=== PATIENT | male | born 1970 | race Caucasian/White ===

== ENCOUNTER → 2016-09-11 | Outpatient (CLI) | payer MEDICAID, OTHER ==
[~2016-09-11] MED LIST: ALB2.5NEB INH; ALBU17IN INH; DRIS50002 PO; DULE100A INH; FERR325T3 PO; GABA-282 PO; GABA-283 PO; HYDR25T PO; IBUP800T23 PO; INCR1INH INH; LEVA500T PO; LEVO750T33 PO; LIPI10TA PO; LISI40TAB PO; NICO21PAT TD; PRED10TA PO; PRED20TA PO; SERT-138 PO; SERT50TA PO; TRAZO50TA PO; TYLE325T5 PO; VITA1CAP25 PO
[2016-09-11 14:54] LABS: ANION GAP 6 MEQ/L (8-16); BLOOD UREA NITROGEN 11 MG/DL (7-18); CALCIUM LEVEL 9.3 MG/DL (8.5-10.1); CARBON DIOXIDE LEVEL 30 MEQ/L (21-32); CHLORIDE LEVEL 105 MEQ/L (98-107); GLOMERULAR FILTRATION RATE > 60.0 (>60); GLUCOSE, FASTING 109 MG/DL (70-105); SODIUM LEVEL 141 MEQ/L (136-145)
== END ==
LOC: M LAB 13:20
PROVIDERS: ATTEND Family Medicine
DX: R73.03 Prediabetes (principal); Z79.1 Long term (current) use of non-steroidal anti-inflammatories (NSAID)

== ENCOUNTER → 2016-09-15 | Outpatient (CLI) | payer OTHER ==
--- NOTE | 2016-09-15 16:00 | REP ---
MRI thoracic spine without contrast: History: Urinary incontinence and gait instability. Comparison radiographs are from January 25, 2016. Technique: Sagittal and axial T1 and T2-weighted scans are acquired in the usual fashion with and without fat saturation. Sequences include spin echo, turbo spin-echo, and STIR imaging sequences. MRI findings: Thoracic vertebral body heights are preserved and alignment is normal. Cortical and medullary bone signal intensity is normal. There is disc space narrowing and decreased disc space signal intensity on T2-weighted sequences at the T6-7 and T8-9 intervertebral disc levels consistent with some degree of degenerative disc disease at these two levels. At T6-7, there is a right posterior disc protrusion, which effaces the ventral subarachnoid space and which flattens the right ventral lateral margin of the cord. No central canal stenosis is seen. At T8-9, there is mild diffuse bulging of the posterior cord margin without focal herniation. No cord compression is seen. The thoracic cord is normal in caliber and course. However, the central canal is slightly dilated and more conspicuous than usual on T2-weighted images, particularly the STIR sequence. 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 No extra spinal abnormality is seen. Exam is otherwise unremarkable. Impression: 1. Mild degenerative disc disease is T6-7 and T8-9. 2. Small right posterior disc protrusion at T6-7 flattening the right ventral lateral margin of the cord. 3. Mild prominence of the central canal in the thoracic spinal cord consistent with minimal hydromyelia. Signed by Sav Hair MD 09/15/2016 06:00 P
== END ==
LOC: M RAD 13:40
PROVIDERS: ATTEND Family Medicine
DX: R32 Unspecified urinary incontinence (principal); R26.81 Unsteadiness on feet; M51.34 Other intervertebral disc degeneration, thoracic region; M51.04 Intervertebral disc disorders with myelopathy, thoracic region; R90.89 Other abnormal findings on diagnostic imaging of central nervous system

== ENCOUNTER → 2017-01-11 | Outpatient (CLI) | payer MEDICAID ==
[~2017-01-11] MED LIST changes: +HYDR-3363 PO; -HYDR25T PO; +IBUP1TAB7 PO; -IBUP800T23 PO; +LEVA1TAB2 PO; -LEVA500T PO; +LEVO750T13 PO; -LEVO750T33 PO
== END ==
LOC: M OUTALCOH 13:24
PROVIDERS: ATTEND Psychiatry & Neurology Psychiatry
DX: Z13.9 Encounter for screening, unspecified (principal); F10.20 Alcohol dependence, uncomplicated

== ENCOUNTER → 2017-02-01 | Outpatient (RCR) | payer MEDICAID | LOC: M OUTALCOH 01-19 16:51 | PROVIDERS: ATTEND Psychiatry & Neurology Psychiatry | DX: F10.20 Alcohol dependence, uncomplicated (principal); F17.200 Nicotine dependence, unspecified, uncomplicated ==

== ENCOUNTER → 2017-02-23 | Outpatient (CLI) | payer MEDICAID ==
[2017-02-23 15:23] LABS: ANION GAP 6 MEQ/L (8-16); BLOOD UREA NITROGEN 11 MG/DL (7-18); CALCIUM LEVEL 9.6 MG/DL (8.5-10.1); CARBON DIOXIDE LEVEL 29 MEQ/L (21-32); CHLORIDE LEVEL 108 MEQ/L (98-107); CREATININE FOR GFR 0.93 MG/DL (0.70-1.30); GLOMERULAR FILTRATION RATE > 60.0 (>60); GLUCOSE, FASTING 97 MG/DL (70-105); POTASSIUM SERUM 4.8 MEQ/L (3.5-5.1); SODIUM LEVEL 143 MEQ/L (136-145)
== END ==
LOC: M LAB 14:03
PROVIDERS: ATTEND Family Medicine
DX: R73.03 Prediabetes (principal)

== ENCOUNTER 2017-02-28 15:00 | Outpatient (RCR) | payer MEDICAID | END 2017-03-03 | LOC: M OUTALCOH 15:00 | PROVIDERS: ATTEND Psychiatry & Neurology Psychiatry | DX: F10.20 Alcohol dependence, uncomplicated (principal); F17.200 Nicotine dependence, unspecified, uncomplicated ==

== ENCOUNTER 2017-04-30 16:00 | Outpatient (RCR) | payer MEDICAID | END 2017-05-03 | LOC: M OUTALCOH 16:00 | PROVIDERS: ATTEND Psychiatry & Neurology Psychiatry | DX: F10.20 Alcohol dependence, uncomplicated (principal); F17.200 Nicotine dependence, unspecified, uncomplicated ==

== ENCOUNTER 2017-05-04 10:51 | Outpatient (RCR) | payer MEDICAID | END 2017-06-03 | LOC: M OUTALCOH 05-07 16:00 | DX: F10.20 Alcohol dependence, uncomplicated (principal); F17.200 Nicotine dependence, unspecified, uncomplicated ==

== ENCOUNTER 2017-06-07 14:00 | Outpatient (RCR) | payer MEDICAID | END 2017-07-04 | LOC: M OUTALCOH 06-11 16:00 | DX: F10.20 Alcohol dependence, uncomplicated (principal); F17.200 Nicotine dependence, unspecified, uncomplicated ==

== ENCOUNTER 2017-07-06 16:55 | Outpatient (RCR) | payer MEDICAID | END 2017-08-01 | LOC: M OUTALCOH 16:55 | DX: F10.20 Alcohol dependence, uncomplicated (principal); F17.200 Nicotine dependence, unspecified, uncomplicated ==

== ENCOUNTER 2017-07-16 09:08 | Outpatient (RCR) | payer MEDICAID | END 2017-08-01 | LOC: M OUTALCOH 07-20 12:00 | DX: F10.20 Alcohol dependence, uncomplicated (principal); F17.200 Nicotine dependence, unspecified, uncomplicated ==

== ENCOUNTER 2017-08-03 13:06 | Outpatient (RCR) | payer MEDICAID | END 2017-09-01 | LOC: M OUTALCOH 13:06 | DX: F10.20 Alcohol dependence, uncomplicated (principal); F17.200 Nicotine dependence, unspecified, uncomplicated ==

== ENCOUNTER → 2017-08-13 | Outpatient (REF) | payer MEDICARE, OTHER ==
[2017-08-13 14:24] LABS: ANION GAP 7 MEQ/L (8-16); BLOOD UREA NITROGEN 7 MG/DL (7-18); CALCIUM LEVEL 9.3 MG/DL (8.5-10.1); CARBON DIOXIDE LEVEL 29 MEQ/L (21-32); CHLORIDE LEVEL 105 MEQ/L (98-107); CREATININE FOR GFR 1.03 MG/DL (0.70-1.30); GLOMERULAR FILTRATION RATE > 60.0 (>60); GLUCOSE, FASTING 134 MG/DL (70-100); PSA SCREENING 1.43 NG/ML (< 4.0); SODIUM LEVEL 141 MEQ/L (136-145)
[2017-08-13 15:29] LABS: ESTIMATED AVERAGE GLUCOSE 134 MG/DL (60-110); HEMOGLOBIN A1c 6.3 %
[2017-08-14 14:17] LABS: TESTOSTERONE FREE (DIRECT) 13.9 pg/mL (6.8-21.5)
== END ==
LOC: M SFHCPLAZ 11:15
DX: R73.03 Prediabetes (principal); E29.1 Testicular hypofunction; R32 Unspecified urinary incontinence
CPT/HCPCS: 84403

== ENCOUNTER → 2017-08-24 | Outpatient (CLI) | payer MEDICARE, OTHER, MEDICAID ==
[2017-08-24 09:30] LABS: APPEARANCE, URINE CLEAR (CLEAR); BACTERIA, URINE AUTO NEGATIVE (NEGATIVE); BILIRUBIN, URINE AUTO NEGATIVE (NEGATIVE); BLOOD, URINE BLOOD NEGATIVE (NEGATIVE); COLOR, URINE STRAW (YELLOW); GLUCOSE, URINE (UA) AUTO NEGATIVE (NEGATIVE); KETONE, URINE AUTO NEGATIVE (NEGATIVE); LEUKOCYTE ESTERASE, URINE AUTO NEGATIVE (NEGATIVE); NITRITE, URINE AUTO NEGATIVE (NEGATIVE); PROTEIN, URINE AUTO NEGATIVE (NEGATIVE); RBC, URINE AUTO 0 /HPF (0-3); SPECIFIC GRAVITY URINE AUTO 1.003 (1.002-1.035); SQUAMOUS EPITHELIAL CELL UR AU 0 /HPF (0-6); UROBILINOGEN, URINE AUTO 0.2 mg/dL (0.0-2.0); WBC, URINE AUTO 0 /HPF (0-3)
== END ==
LOC: M LAB 08:46
DX: R32 Unspecified urinary incontinence (principal)
CPT/HCPCS: 76857

== ENCOUNTER → 2020-06-01 | Outpatient (REF) | payer MEDICARE, MEDICAID ==
[~2020-06-01] MED LIST changes: -DRIS50002 PO; +DRIS50003 PO; -GABA-282 PO; -GABA-283 PO; +GABA-843 PO; +GABA-845 PO; +LISI40TA52 PO; -LISI40TAB PO; +NICO21DI3 TD; -NICO21PAT TD; +PRED-351 PO; -PRED10TA PO; +SERT-141 PO; -SERT50TA PO; +TRAZ1TAB10 PO; -TRAZO50TA PO
== END ==
LOC: M SFHCPLAZ 13:41
PROVIDERS: ATTEND Family Medicine
DX: R73.03 Prediabetes (principal); I10 Essential (primary) hypertension; E78.2 Mixed hyperlipidemia; E55.9 Vitamin D deficiency, unspecified

== ENCOUNTER → 2020-11-22 | Outpatient (REF) | payer MEDICARE, MEDICAID ==
[~2020-11-22] MED LIST changes: +GABA-282 PO; +GABA-283 PO; -GABA-843 PO; -GABA-845 PO
[2020-11-22 18:30] LABS: BASO % 0.3 % (0.0-1.0); EOS # 0.2 10^3/uL (0.0-0.5); EOS % 1.2 % (0.0-3.0); HEMATOCRIT 44.6 % (42.0-52.0); HEMOGLOBIN 14.8 g/dl (13.5-17.5); LYMPH # 3.6 10^3/uL (1.5-5.0); LYMPH % 26.3 % (24.0-44.0); MEAN CORPUSCULAR HEMOGLOBIN 32.7 pg (27.0-33.0); MEAN CORPUSCULAR HGB CONC 33.2 g/dl (32.0-36.5); MEAN CORPUSCULAR VOLUME 98.5 fl (80.0-96.0); MONO # 0.6 10^3/uL (0.0-0.8); MONO % 4.4 % (2.0-8.0); NEUTROPHILS # 9.1 10^3/uL (1.5-8.5); NEUTROPHILS % 67.4 % (36.0-66.0); PLATELET COUNT, AUTOMATED 214 10^3/uL (150-450); RED BLOOD COUNT 4.53 10^6/uL (4.30-6.10); WHITE BLOOD COUNT 13.5 10^3/uL (4.0-10.0)
[2020-11-22 18:54] LABS: ALT/SGPT 36 U/L (12-78); BILIRUBIN,TOTAL 0.3 MG/DL (0.2-1.0); BLOOD UREA NITROGEN 10 MG/DL (7-18); CALCIUM LEVEL 9.5 MG/DL (8.5-10.1); CARBON DIOXIDE LEVEL 29 MEQ/L (21-32); CHLORIDE LEVEL 106 MEQ/L (98-107); CHOLESTEROL LEVEL 220 MG/DL (<200); CHOLESTEROL RISK RATIO 7.586 (<5); GLOMERULAR FILTRATION RATE > 60.0 (>60); GLUCOSE, FASTING 87 MG/DL (70-100); HDL CHOLESTEROL 29 MG/DL (>40); NON-HDL-C 191 MG/DL; POTASSIUM SERUM 4.1 MEQ/L (3.5-5.1); SODIUM LEVEL 140 MEQ/L (136-145); TOTAL PROTEIN 6.9 GM/DL (6.4-8.2); TRIGLYCERIDES LEVEL 597 MG/DL (<150)
[2020-11-22 18:56] LABS: TOTAL 25(OH) VITAMIN D 15.6 NG/ML (30.0-100.0)
[2020-11-22 19:57] LABS: HEMOGLOBIN A1c 5.9 %
== END ==
LOC: M SFHCPLAZ 15:32
PROVIDERS: ATTEND Family Medicine
DX: R73.03 Prediabetes (principal); E55.9 Vitamin D deficiency, unspecified; I10 Essential (primary) hypertension; E78.2 Mixed hyperlipidemia
CPT/HCPCS: 36415; 80053; 80061; 82306; 83036; 85025; G0463

== ENCOUNTER → 2021-12-09 | Outpatient (CLI) | payer MEDICARE, MEDICAID ==
[2021-12-09 15:31] LABS: BASO % 0.5 % (0.0-1.0); EOS # 0.1 10^3/uL (0.0-0.5); EOS % 1.5 % (0.0-3.0); HEMATOCRIT 42.5 % (42.0-52.0); HEMOGLOBIN 14.2 g/dl (13.5-17.5); LYMPH # 2.9 10^3/uL (1.5-5.0); LYMPH % 35.2 % (24.0-44.0); MEAN CORPUSCULAR HGB CONC 33.4 g/dl (32.0-36.5); MEAN CORPUSCULAR VOLUME 104.7 fl (80.0-96.0); MONO # 0.6 10^3/uL (0.0-0.8); MONO % 7.3 % (2.0-8.0); NEUTROPHILS # 4.5 10^3/uL (1.5-8.5); PLATELET COUNT, AUTOMATED 195 10^3/uL (150-450); RED BLOOD COUNT 4.06 10^6/uL (4.30-6.10); WHITE BLOOD COUNT 8.1 10^3/uL (4.0-10.0)
[2021-12-09 15:47] LABS: HEMOGLOBIN A1c 5.6 %
[2021-12-09 16:04] LABS: ALBUMIN 4.3 GM/DL (3.2-5.2); ALT/SGPT 40 U/L (12-78); BILIRUBIN,TOTAL 0.4 MG/DL (0.2-1.0); BLOOD UREA NITROGEN 13 MG/DL (7-18); CALCIUM LEVEL 9.4 MG/DL (8.5-10.1); CARBON DIOXIDE LEVEL 26 MEQ/L (21-32); CHLORIDE LEVEL 111 MEQ/L (98-107); CHOLESTEROL LEVEL 178 MG/DL (<200); CHOLESTEROL RISK RATIO 4.139 (<5); CREATININE FOR GFR 0.78 MG/DL (0.70-1.30); GLOMERULAR FILTRATION RATE > 60.0 (>56); GLUCOSE, FASTING 95 MG/DL (70-100); HDL CHOLESTEROL 43 MG/DL (>40); LDL CHOLESTEROL 88 MG/DL (<100); NON-HDL-C 135 MG/DL; POTASSIUM SERUM 4.4 MEQ/L (3.5-5.1); SODIUM LEVEL 144 MEQ/L (136-145); TRIGLYCERIDES LEVEL 234 MG/DL (<150)
[2021-12-09 16:15] LABS: TOTAL 25(OH) VITAMIN D 40.8 NG/ML (30.0-100.0)
== END ==
LOC: M PLALAB 12:51
PROVIDERS: ATTEND Student in an Organized Health Care Education/Training Program
DX: I10 Essential (primary) hypertension (principal); E78.2 Mixed hyperlipidemia; E55.9 Vitamin D deficiency, unspecified; R73.03 Prediabetes; Z79.899 Other long term (current) drug therapy

== ENCOUNTER → 2023-07-13 | Outpatient (REF) | payer MEDICARE, MEDICAID ==
[~2023-07-13] MED LIST changes: -DULE100A INH; -GABA-283 PO; +GABA-284 PO; +LEVO1TAB40 PO; -LEVO750T13 PO; +MOME13HF8 INH
== END ==
LOC: M SFHCPLAZ 11:20
PROVIDERS: ATTEND Internal Medicine Hematology
DX: R73.03 Prediabetes (principal); E55.9 Vitamin D deficiency, unspecified; E78.00 Pure hypercholesterolemia, unspecified; Z13.29 Encounter for screening for other suspected endocrine disorder

== ENCOUNTER → 2023-07-19 | Outpatient (CLI) | payer MEDICARE, MEDICAID ==
[2023-07-19 18:21] LABS: HEMOGLOBIN A1c 5.4 % (4.0-6.0)
[2023-07-19 18:37] LABS: BLOOD UREA NITROGEN 18 MG/DL (9-23); CALCIUM LEVEL 9.2 MG/DL (8.5-10.1); CARBON DIOXIDE LEVEL 27 MMOL/L (20-31); CHLORIDE LEVEL 106 MMOL/L (98-107); CHOLESTEROL LEVEL 160 MG/DL (<200); CHOLESTEROL RISK RATIO 2.58 (<5); GLOMERULAR FILTRATION RATE > 60.0 (>56); GLUCOSE, FASTING 92 MG/DL (60-100); LDL CHOLESTEROL 69.4 MG/DL (<100); SODIUM LEVEL 139 MMOL/L (136-145); TRIGLYCERIDES LEVEL 143 MG/DL (<150)
[2023-07-19 18:44] LABS: FREE T4 1.03 NG/DL (0.89-1.76); THYROID STIMULATING HORMONE 1.886 uIU/ML (0.55-4.78); TOTAL 25(OH) VITAMIN D 31.4 NG/ML (20.0-100.0)
== END ==
LOC: M PLALAB 16:24
PROVIDERS: ATTEND Student in an Organized Health Care Education/Training Program
DX: R73.03 Prediabetes (principal); E55.9 Vitamin D deficiency, unspecified; E78.00 Pure hypercholesterolemia, unspecified; Z13.29 Encounter for screening for other suspected endocrine disorder

== ENCOUNTER → 2023-07-20 | Outpatient (CLI) | payer MEDICARE, MEDICAID | LOC: M RAD 18:08 | PROVIDERS: ATTEND Family Medicine | DX: F17.210 Nicotine dependence, cigarettes, uncomplicated (principal); Z53.9 Procedure and treatment not carried out, unspecified reason ==

== ENCOUNTER → 2023-08-24 | Outpatient (CLI) | payer MEDICARE, MEDICAID | LOC: M RAD 14:52 | PROVIDERS: ATTEND Student in an Organized Health Care Education/Training Program | DX: Z12.2 Encounter for screening for malignant neoplasm of respiratory organs (principal); R91.8 Other nonspecific abnormal finding of lung field; F17.210 Nicotine dependence, cigarettes, uncomplicated ==

== ENCOUNTER → 2023-12-26 | Outpatient (REF) | payer MEDICARE, MEDICAID | LOC: M SFHCPLAZ 12:16 | PROVIDERS: ATTEND Student in an Organized Health Care Education/Training Program | DX: J32.9 Chronic sinusitis, unspecified (principal) ==

== ENCOUNTER → 2024-06-20 | Outpatient (REF) | payer MEDICARE, MEDICAID ==
[~2024-06-20] MED LIST changes: +GABA-1172 PO; -GABA-282 PO
== END ==
LOC: M SFHCPLAZ 16:11
DX: F41.9 Anxiety disorder, unspecified (principal); J44.9 Chronic obstructive pulmonary disease, unspecified; Z13.1 Encounter for screening for diabetes mellitus; Z13.220 Encounter for screening for lipoid disorders; E55.9 Vitamin D deficiency, unspecified

== ENCOUNTER → 2024-08-21 | Outpatient (REF) | payer MEDICARE, MEDICAID ==
[2024-08-21 16:16] LABS: ALBUMIN 4.3 G/DL (3.2-5.2); ALKALINE PHOSPHATASE 91 U/L (40-129); ALT/SGPT 32 U/L (7.0-40); AST/SGOT 28 U/L (<34); BILIRUBIN,TOTAL 0.5 MG/DL (0.3-1.2); BLOOD UREA NITROGEN 18 MG/DL (9-23); CALCIUM LEVEL 9.7 MG/DL (8.5-10.1); CARBON DIOXIDE LEVEL 26 MMOL/L (20-31); CHLORIDE LEVEL 108 MMOL/L (98-107); CHOLESTEROL LEVEL 183 MG/DL (<200); CHOLESTEROL RISK RATIO 3.09 (<5); CREATININE FOR GFR 0.71 MG/DL (0.70-1.30); GLOMERULAR FILTRATION RATE > 60.0 (>56); GLUCOSE, FASTING 93 MG/DL (60-100); HDL CHOLESTEROL 59.1 MG/DL (>40); LDL CHOLESTEROL 101.1 MG/DL (<100); NON-HDL-C 123.9 MG/DL; POTASSIUM SERUM 4.2 MMOL/L (3.5-5.1); PSA SCREENING 1.43 NG/ML (< 4.00); SODIUM LEVEL 140 MMOL/L (136-145); TOTAL 25(OH) VITAMIN D 37.1 NG/ML (20.0-100.0); TOTAL PROTEIN 7.5 G/DL (5.7-8.2); TRIGLYCERIDES LEVEL 114 MG/DL (<150)
[2024-08-21 16:18] LABS: VITAMIN B12 LEVEL 380 PG/ML (211-911)
[2024-08-21 16:22] LABS: BASO % 0.4 % (0.0-1.0); EOS # 0.1 10^3/uL (0.0-0.5); HEMATOCRIT 46.6 % (42.0-52.0); HEMOGLOBIN 15.3 g/dl (13.5-17.5); LYMPH # 1.8 10^3/uL (1.5-5.0); LYMPH % 22.5 % (24.0-44.0); MEAN CORPUSCULAR HEMOGLOBIN 34.5 pg (27.0-33.0); MEAN CORPUSCULAR HGB CONC 32.8 g/dl (32.0-36.5); MEAN CORPUSCULAR VOLUME 105.2 fl (80.0-96.0); MONO # 0.5 10^3/uL (0.0-0.8); MONO % 6.2 % (2.0-8.0); NEUTROPHILS # 5.6 10^3/uL (1.5-8.5); NEUTROPHILS % 69.5 % (36.0-66.0); PLATELET COUNT, AUTOMATED 225 10^3/uL (150-450); RED BLOOD COUNT 4.43 10^6/uL (4.30-6.10)
[2024-08-21 16:58] LABS: FOLATE 10.4 NG/ML (>5.4)
[2024-08-21 17:14] LABS: HIV 1&2 SCREEN NEGATIVE (NEGATIVE)
[2024-08-21 17:21] LABS: HEPATITIS C VIRUS ABY INDEX 0.23 INDEX (<0.8)
== END ==
LOC: M LAB REF 15:06
PROVIDERS: ATTEND Physician Assistant
DX: F10.10 Alcohol abuse, uncomplicated (principal); E55.9 Vitamin D deficiency, unspecified; Z12.5 Encounter for screening for malignant neoplasm of prostate; I10 Essential (primary) hypertension; Z72.89 Other problems related to lifestyle; Z11.3 Encounter for screening for infections with a predominantly sexual mode of transmission; Z79.899 Other long term (current) drug therapy
CPT/HCPCS: 80053; 80061; 82306; 82607; 82746; 83036; 84443; 85025; 86780; 86803; 87389; G0103

== ENCOUNTER → 2024-09-10 | Outpatient (REF) | payer MEDICARE, MEDICAID ==
[2024-09-10 18:04] LABS: CREATININE, URINE 57.8 MG/DL; MALB URINE SIEMENS < 3.0 MG/L
[2024-09-10 20:37] LABS: Trichomonas vaginalis (AMP) NOT DETECTED (NEGATIVE)
[2024-09-10 20:57] LABS: GC DNA AMPLIFICATION NEGATIVE (NEGATIVE)
== END ==
LOC: M LAB REF 17:18
PROVIDERS: ATTEND Physician Assistant
DX: I10 Essential (primary) hypertension (principal); Z11.3 Encounter for screening for infections with a predominantly sexual mode of transmission; Z72.89 Other problems related to lifestyle

== ENCOUNTER → 2024-10-22 | Outpatient (REF) | payer MEDICARE, MEDICAID ==
[2024-10-22 13:00] LABS: BLOOD UREA NITROGEN 15 MG/DL (9-23); CALCIUM LEVEL 9.4 MG/DL (8.5-10.1); CARBON DIOXIDE LEVEL 28 MMOL/L (20-31); CHLORIDE LEVEL 109 MMOL/L (98-107); CHOLESTEROL LEVEL 171 MG/DL (<200); CHOLESTEROL RISK RATIO 3.61 (<5); CREATININE FOR GFR 0.82 MG/DL (0.70-1.30); GLOMERULAR FILTRATION RATE > 90.0 (>56); GLUCOSE, FASTING 114 MG/DL (60-100); HDL CHOLESTEROL 47.3 MG/DL (>40); LDL CHOLESTEROL 82.7 MG/DL (<100); NON-HDL-C 123.7 MG/DL; POTASSIUM SERUM 4.2 MMOL/L (3.5-5.1); SODIUM LEVEL 144 MMOL/L (136-145); TRIGLYCERIDES LEVEL 205 MG/DL (<150)
== END ==
LOC: M LAB REF 12:33
PROVIDERS: ATTEND Physician Assistant
DX: I10 Essential (primary) hypertension (principal)